=== PATIENT | female | born 1945 | race Caucasian/White ===

== ENCOUNTER 2023-10-18 12:54 | Emergency (ER) | payer OTHER ==
[~2023-10-18] VITALS: Ht 170.2 cm; Wt 104.3 kg
[2023-10-18 12:58] VITALS: BP 136/87; PULSE 92; RESP 20; TEMP 100.2; O2SAT 93
[2023-10-18] MEDS: ONDANSETRON 4 MG/2 ML VIAL IVP ONE (13:20)
[2023-10-18 13:22] LABS: BASOPHILS % (AUTO) 0.5 % (0.0-2.0); EOSINOPHILS # (AUTO) 0.1 K/uL (0-0.4); EOSINOPHILS % (AUTO) 1.2 % (0.0-4.0); HEMATOCRIT 34.6 % (36-48); HEMOGLOBIN 11.4 g/dL (12.0-16.0); LYMPHOCYTES # (AUTO) 1.2 K/uL (2.5-16.5); LYMPHOCYTES % (AUTO) 12.2 % (20.5-51.1); MEAN CORPUSCULAR HEMOGLOBIN 29 pg (27-31); MEAN CORPUSCULAR HGB CONC 33 g/dL (33-37); MEAN CORPUSCULAR VOLUME 88.5 fL (80-94); MONOCYTES # (AUTO) 1.2 K/uL (0.8-1.0); MONOCYTES % (AUTO) 12.3 % (1.7-9.3); NEUTROPHILS # (AUTO) 7.2 K/uL (1.8-7.7); NEUTROPHILS % (AUTO) 73.8 % (42.2-75.2); PLATELET COUNT (AUTO) 272 K/uL (140-450); RED BLOOD CELL COUNT(AUTO) 3.91 MIL/uL (4.20-5.40); RED CELL DISTRIBUTION WIDTH 15.3 % (11.6-13.7); WHITE BLOOD COUNT (AUTO) 9.8 K/uL (4.8-10.8)
[2023-10-18] MEDS: NACL 0.9% 1,000 ML IV ONE (13:23)
[2023-10-18 13:32] LABS: ANION GAP 13.4 (8-16); CARBON DIOXIDE 32.7 mmol/L (21-32); CHLORIDE 98 mmol/L (98-107); CREATININE 1.4 mg/dL (0.6-1.3); GLUCOSE 107 mg/dL (74-106); POTASSIUM 4.1 mmol/L (3.5-5.1); SODIUM SERUM 140 mmol/L (136-145); UREA NITROGEN, BLOOD 29 mg/dL (7-18)
[2023-10-18 13:41] LABS: ALANINE AMINOTRANSFERASE 20 U/L (12-78); ALBUMIN 2.8 g/dL (3.4-5.0); ALKALINE PHOSPHATASE 74 U/L (50-136); ASPARTATE AMINOTRANSFERASE 24 U/L (15-37); LIPASE 30 U/L (16-77); TOTAL BILIRUBIN 0.6 mg/dL (0.0-1.0); TOTAL PROTEIN, SERUM 7.6 g/dL (6.4-8.2)
[2023-10-18 14:27] LABS: APPEARANCE,URINE CLOUDY (CLEAR); BILIRUBIN,URINE NEGATIVE (NEGATIVE); BLOOD, URINE 2+ (NEGATIVE); COLOR,URINE YELLOW (YELLOW); LEUKOCYTE ESTERASE ,URINE 3+ (NEGATIVE); NITRITE, URINE NEGATIVE (NEGATIVE); PH,URINE 6.5 (5.0-9.0); PROTEIN,URINE 2+ (NEGATIVE); UGLUCOSE NEGATIVE (NEGATIVE); UROBILINOGEN,URINE 0.2 EU/dL (0.2 - 1)
[2023-10-18 14:43] LABS: BACTERIA,URINE 1+ /HPF (None Seen); MUCUS,URINE 1+ /LPF (None Seen); RBC,URINE 11-20 (MOD) /HPF (0-5); SQUAMOUS EPITHELIAL CELL,UR 4-10 (MOD) /LPF (0-3 (FEW)); TRICHOMONAS,URINE None Seen /HPF (None Seen); WBC,URINE TOO MANY TO COUNT /HPF (0-5); YEAST,URINE None Seen /HPF (None Seen)
[2023-10-18] MEDS: cefTRIAXone 2,000 MG in DEXTROSE 5% 100 ML IV ONE (15:05)
[2023-10-18] MEDS ORDERED: LEVE500T18 PO (15:35)
[2023-10-18] MEDS ORDERED: SYN.05 PO (15:35)
[2023-10-18] MEDS ORDERED: NIFE60TE5 PO (15:35)
[2023-10-18] MEDS ORDERED: CLON0.1T16 PO (15:35)
[2023-10-18] MEDS ORDERED: ATOR40TA40 PO (15:35)
[2023-10-18] MEDS ORDERED: ASPI-1822 PO (15:35)
[2023-10-18] MEDS ORDERED: FERR-13 PO (15:35)
[2023-10-18] MEDS ORDERED: LACT1CAP67 PO (15:35)
[2023-10-18] MEDS ORDERED: MEGE40SU5 PO (15:35)
[2023-10-18] MEDS ORDERED: CARV12.52 PO (15:35)
[2023-10-18] MEDS ORDERED: MULT-2246 PO (15:35)
[2023-10-18] MEDS ORDERED: cefTRIAXone 2,000 MG VIAL ONE (15:57)
[2023-10-18] MEDS: MORPHINE SULFATE 4 MG/ML SYR IVP ONE (16:54)
[2023-10-18 19:00] VITALS: BP 154/91; PULSE 96; RESP 16; TEMP 98; O2SAT 96
== END 2023-10-18 19:10 | disposition short-term general hospital (02) ==
LOC: MED 12:54
DX: K56.609 Unspecified intestinal obstruction, unspecified as to partial versus complete obstruction (principal); Z79.899 Other long term (current) drug therapy; Z79.82 Long term (current) use of aspirin
CPT/HCPCS: 36415; 71045; 74177; 80053; 81001; 83690; 84484; 85025; 87086; 87186; 93005; 96361; 96365; 96375; 99285; J0696; J2270; J2405; J7030; Q9967